=== PATIENT | female | born 1960 | race Asian ===

== ENCOUNTER 2020-04-23 11:26 | Emergency (ER) | payer MEDICAID ==
[~2020-04-23] VITALS: Ht 152.4 cm; Wt 55.0 kg
[~2020-04-23 11:26] MED LIST: ATOR10TA60 PO; BISA-42 PO; GLIM1TAB7 PO; INSU100V13 SQ; LISI2.5T PO; METF500T16 PO; NITR100C6 PO; URSO300C13 PO
[2020-04-23] MEDS ORDERED: IV NORMAL SALINE 1000ML BAG 1,000 ML IV ONE (12:30)
[2020-04-23] MEDS ORDERED: ONDANSETRON PF 4 MG/2 ML VIAL. IV ONE (12:30)
[2020-04-23] MEDS ORDERED: fentaNYL PF VIAL 100 MCG/2 ML VIAL IV ONE (12:30)
[2020-04-23 12:45] LABS: BASO # 0.2 x10^3/uL (0.0-0.2); BASO % 2 % (0-3); EOS # 0.1 x10^3/uL (0.0-0.7); EOS % 1 % (0-3); HEMATOCRIT 29.5 % (36.0-47.0); LYMPH # 2.8 x10^3/uL (1.0-4.8); LYMPH % 33 % (24-48); MEAN CORPUSCULAR HEMOGLOBIN 29 pg (25-35); MEAN CORPUSCULAR HGB CONC 34 g/dL (31-37); MEAN CORPUSCULAR VOLUME 85 fL (79-100); MONO # 0.3 x10^3/uL (0.0-1.1); MONO % 4 % (0-9); NEUT # 5.3 x10^3/uL (1.8-7.7); NEUT % 61 % (31-73); PLATELET COUNT 661 x10^3/uL (140-400); RED BLOOD COUNT 3.46 x10^6/uL (3.50-5.40); WHITE BLOOD COUNT 8.7 x10^3/uL (4.0-11.0)
--- NOTE | 2020-04-23 12:45 | EKG ---
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
[2020-04-23 12:50] LABS: CALCIUM 9.2 mg/dL (8.5-10.1); CREATININE 1.7 mg/dL (0.6-1.0); GFR 30.9; POTASSIUM 4.6 mmol/L (3.5-5.1)
[2020-04-23 12:56] LABS: ALBUMIN 3.2 g/dL (3.4-5.0); ALBUMIN/GLOBULIN RATIO 0.7 (1.0-1.7); MAGNESIUM 2.1 mg/dL (1.8-2.4); TOTAL BILIRUBIN 0.2 mg/dL (0.2-1.0); TOTAL PROTEIN 7.8 g/dL (6.4-8.2)
--- NOTE | 2020-04-23 13:56 | RAD ---
CT Abdomen and Pelvis without contrast History: Abdominal pain Technique: Noncontrast CT imaging was performed of the abdomen and pelvis. Multiplanar images are reviewed. Exposure: One or more of the following individualized dose reduction techniques were utilized for this examination: 1. Automated exposure control 2. Adjustment of the mA and/or kV according to patient size 3. Use of iterative reconstruction technique. Comparison: April 06, 2020 Findings: There is motion degradation. There is again degree of mosaic attenuation of the lung parenchyma near lung bases although decreased, no pleural fluid. Accurate evaluation of the abdominal visceral organs is limited without intravenous contrast. No new obvious focal abnormality is identified of the liver, spleen, or pancreas. Gallbladder is present without obvious intraluminal abnormality by CT. There is again mild right pelvocaliectasis and mild left pelviectasis. There is again some nonspecific strandy change of the perinephric fat bilaterally. No renal or ureteral calculus is identified. There is scattered mild plaque of the abdominal aorta. Bowel is not significantly dilated. There is no free fluid or free air. Urinary bladder is distended. Normal caliber appendix is visualized without adjacent inflammatory change. There is some variable mild multilevel vacuum disc disease of the thoracolumbar spine. Impression: 1. Findings are fairly similar comparing with the April 06, 2020 exam. There is again mild right renal pelvocaliectasis and mild left renal pelviectasis. There is again nonspecific strandy change of perinephric fat, can be associated with pyelonephritis in the appropriate clinical setting although can be seen in asymptomatic individuals. There is increased distention of the urinary bladder. There is no urolithiasis. 2. There is no CT evidence of acute appendicitis, no significant inflammatory type change about the bowel. 3. There is some residual although decreased nonspecific mosaic attenuation of the visualized lung parenchyma at the lung bases. Electronically signed by: Westley Guajardo MD (04/23/2020 1:53 PM) [id number]
[2020-04-23 14:21] LABS: BILIRUBIN,URINE NEGATIVE (NEG); CLARITY,URINE CLEAR; COLOR,URINE YELLOW; NITRITE,URINE NEGATIVE (NEG); PH,URINE 6.5 (<5.0-8.0); PROTEIN,URINE NEGATIVE (NEG-TRACE); UROBILINOGEN,URINE 0.2 mg/dL (0.2 mg/dL)
--- NOTE | 2020-04-23 14:24 | PHYS DOC ---
Past Medical History Past Medical History: Diabetes-Type II, GERD, High Cholesterol, Hypertension Past Surgical History: No Surgical History Smoking Status: Current Every Day Smoker Alcohol Use: Occasionally General Adult EDM: Chief Complaint: ABDOMINAL PAIN HPI: HPI: Patient is a 59-year-old female who speaks [place] presents with several day history of abdominal pain that radiates up into her chest. She has had some nausea but no vomiting. She denies any melena and hematemesis. She denies any shortness of breath or dyspnea on exertion. She has not had any fever chills or sweats. She denies any cough or congestion. 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 [] Review of Systems: Review of Systems: Constitutional: Denies fever or chills. [] Eyes: Denies change in visual acuity. [] HENT: Denies nasal congestion or sore throat. [] Respiratory: Denies cough or shortness of breath. [] Cardiovascular: Denies chest pain or edema. [] GI: Reports abdominal pain. [] : Denies dysuria. [] Musculoskeletal: Denies back pain or joint pain. [] Integument: Denies rash. [] Neurologic: Denies headache, focal weakness or sensory changes. [] Endocrine: Denies polyuria or polydipsia. [] Lymphatic: Denies swollen glands. [] Psychiatric: Denies depression or anxiety. [] Heart Score: Risk Factors: Risk Factors: DM, Current or recent (<one month) smoker, HTN, HLP, family history of CAD, obesity. Risk Scores: Score 0 - 3: 2.5% MACE over next 6 weeks - Discharge Home Score 4 - 6: 20.3% MACE over next 6 weeks - Admit for Clinical Observation Score 7 - 10: 72.7% MACE over next 6 weeks - Early Invasive Strategies Current Medications: Current Medications Medications (Trade) Dose Ordered Sig/Sarah Start Time Stop Time Status Last Admin Dose Admin Fentanyl Citrate (Fentanyl 2ml Vial) 50 mcg 1X ONCE 04/23/20 12:30 04/23/20 12:31 DC 04/23/20 12:38 50 MCG Ondansetron HCl (Zofran) 4 mg 1X ONCE 04/23/20 12:30 04/23/20 12:31 DC 04/23/20 12:37 4 MG Sodium Chloride 1,000 ml @ 1,000 mls/hr 1X ONCE 04/23/20 12:30 04/23/20 13:29 DC 04/23/20 12:37 1,000 MLS/HR Allergies: Allergies: Allergies Coded Allergies Type Severity Reaction Last Updated Verified No Known Drug Allergies 04/06/20 No Physical Exam: PE: Constitutional: Well developed, well nourished, mild distress, non-toxic appearance. [] HENT: Normocephalic, atraumatic, bilateral external ears normal, oropharynx moist, no oral exudates, nose normal. [] Eyes: PERRLA, EOMI, conjunctiva normal, no discharge. [] Neck: Normal range of motion, no tenderness, supple, no stridor. [] Cardiovascular:Heart rate regular rhythm, no murmur [] Lungs & Thorax: Bilateral breath sounds clear to auscultation [] Abdomen: Diffusely tender to palp no rebound or guarding [] Skin: Warm, dry, no erythema, no rash. [] Back: No tenderness, no CVA tenderness. [] Extremities: No tenderness, no cyanosis, no clubbing, ROM intact, no edema. [] Neurologic: Alert and oriented X 3, normal motor function, normal sensory f unction, no focal deficits noted. [] Psychologic: Anxious l. [] Current Patient Data: Labs: Laboratory Tests Test 04/23/20 12:27 White Blood Count 8.7 x10^3/uL (4.0-11.0) Red Blood Count 3.46 x10^6/uL (3.50-5.40) L Hemoglobin 10.0 g/dL (12.0-15.5) L Hematocrit 29.5 % (36.0-47.0) L Mean Corpuscular Volume 85 fL (79-100) Mean Corpuscular Hemoglobin 29 pg (25-35) Mean Corpuscular Hemoglobin Concent 34 g/dL (31-37) Red Cell Distribution Width 14.0 % (11.5-14.5) Platelet Count 661 x10^3/uL (140-400) H Neutrophils (%) (Auto) 61 % (31-73) Lymphocytes (%) (Auto) 33 % (24-48) Monocytes (%) (Auto) 4 % (0-9) Eosinophils (%) (Auto) 1 % (0-3) Basophils (%) (Auto) 2 % (0-3) Neutrophils # (Auto) 5.3 x10^3/uL (1.8-7.7) Lymphocytes # (Auto) 2.8 x10^3/uL (1.0-4.8) Monocytes # (Auto) 0.3 x10^3/uL (0.0-1.1) Eosinophils # (Auto) 0.1 x10^3/uL (0.0-0.7) Basophils # (Auto) 0.2 x10^3/uL (0.0-0.2) Sodium Level 137 mmol/L (136-145) Potassium Level 4.6 mmol/L (3.5-5.1) Chloride Level 101 mmol/L (98-107) Carbon Dioxide Level 26 mmol/L (21-32) Anion Gap 10 (6-14) Blood Urea Nitrogen 16 mg/dL (7-20) Creatinine 1.7 mg/dL (0.6-1.0) H Estimated GFR (Cockcroft-Gault) 30.9 BUN/Creatinine Ratio 9 (6-20) Glucose Level 60 mg/dL (70-99) L Calcium Level 9.2 mg/dL (8.5-10.1) Magnesium Level 2.1 mg/dL (1.8-2.4) Total Bilirubin 0.2 mg/dL (0.2-1.0) Aspartate Amino Transferase (AST) 37 U/L (15-37) Alanine Aminotransferase (ALT) 41 U/L (14-59) Alkaline Phosphatase 375 U/L (46-116) H Troponin I Quantitative < 0.017 ng/mL (0.000-0.055) Total Protein 7.8 g/dL (6.4-8.2) Albumin 3.2 g/dL (3.4-5.0) L Albumin/Globulin Ratio 0.7 (1.0-1.7) L Lipase 120 U/L (73-393) Laboratory Tests 04/23/20 12:27 Laboratory Tests 04/23/20 12:27 Vital Signs: Vital Signs Date Time Temp Pulse Resp B/P (MAP) Pulse Ox O2 Delivery O2 Flow Rate FiO2 04/23/20 12:56 98.8 75 20 149/68 (95) 100 Room Air 98.8 EKG: EKG: EKG: Normal sinus rhythm rate of [address]-T changes [] Radiology/Procedures: Radiology/Procedures: []CT Abdomen and Pelvis without contrast History: Abdominal pain Technique: Noncontrast CT imaging was performed of the abdomen and pelvis. Multiplanar images are reviewed. Exposure: One or more of the following individualized dose reduction techniques were utilized for this examination: 1. Automated exposure control 2. Adjustment of the mA and/or kV according to patient size 3. Use of iterative reconstruction technique. Comparison: April 06, 2020 Findings: There is motion degradation. There is again degree of mosaic attenuation of the lung parenchyma near lung bases although decreased, no pleural fluid. Accurate evaluation of the abdominal visceral organs is limited without intravenous contrast. No new obvious focal abnormality is identified of the liver, spleen, or pancreas. Gallbladder is present without obvious intraluminal abnormality by CT. There is again mild right pelvocaliectasis and mild left pelviectasis. There is again some nonspecific strandy change of the perinephric fat bilaterally. No renal or ureteral calculus is identified. There is scattered mild plaque of the abdominal aorta. Bowel is not significantly dilated. There is no free fluid or free air. Urinary bladder is distended. Normal caliber appendix is visualized without adjacent inflammatory change. There is some variable mild multilevel vacuum disc disease of the thoracolumbar spine. Impression: 1. Findings are fairly similar comparing with the April 06, 2020 exam. There is again mild right renal pelvocaliectasis and mild left renal pelviectasis. There is again nonspecific strandy change of perinephric fat, can be associated with pyelonephritis in the appropriate clinical setting although can be seen in asymptomatic individuals. There is increased distention of the urinary bladder. There is no urolithiasis. 2. There is no CT evidence of acute appendicitis, no significant inflammatory type change about the bowel. 3. There is some residual although decreased nonspecific mosaic attenuation of the visualized lung parenchyma at the lung bases. Impression: REASON: RUQ pain TECH NOTIFIED PROCEDURE: ABDOMEN LTD ABDOMEN LTD History: Right upper quadrant pain Comparison: None. Findings: Multiple sonographic images of the abdomen are submitted. There is subtle echogenicity in the gallbladder. There is no gallbladder wall thickening or pericholecystic fluid. Hepatic echotexture is within normal limits. Right lobe of the liver measured 14 cm longitudinal. Common bile duct is within normal limits in caliber. There is no abnormality of the visualized pancreas. Right kidney measured 10.4 x 4.2 x 4.2 cm, no hydronephrosis. There is segmental visualization of the inferior vena cava. Impression: 1. There is likely mild gallbladder sludge, no other significant abnormality demonstrated. Course & Med Decision Making: Course & Med Decision Making Pertinent Labs and Imaging studies reviewed. (See chart for details) [ED course: Evaluation reveals a 59-year-old female with abdominal pain. She had a CT scan and an abdominal ultrasound to normal. Gallbladder ultrasound was done because her alkaline phosphatase was slightly elevated. She was given IV fluids and pain medicine which did help alleviate her symptoms.] [employer] Disclaimer: [employer] Disclaimer: This electronic medical record was generated, in whole or in part, using a voice recognition dictation system. Departure Departure Impression: Primary Impression: Abdominal pain Qualified Codes: R10.84 - Generalized abdominal pain Additional Impression: UTI (urinary tract infection) Qualified Codes: N39.0 - Urinary tract infection, site not specified Disposition: 01 HOME, SELF-CARE Condition: IMPROVED Referrals: UNKNOWN PCP NAME (PCP) Patient Instructions: Abdominal Pain (Nonspecific) Additional Instructions: Return to the emergency department with any new or concerning symptoms Scripts Levofloxacin (LEVAQUIN) 500 Mg Tablet 1 TAB PO DAILY for urinary tract infection, #7 TAB Prov: TRUDI BORREGO DO 04/23/20 Dicyclomine Hcl (DICYCLOMINE HCL) 10 Mg Capsule 1 CAP PO TID, #90 CAP 11 Refills Prov: TRUDI BORREGO DO 04/23/20 Justicifation of Admission Dx: Justifications for Admission: Justification of Admission Dx: No Acute Renal Failure: RF Can't Be Managed Outpt TRUDI BORREGO DO Apr 23, 2020 14:24
[2020-04-23 14:28] LABS: SQUAMOUS EPITHELIAL CELL,UR FEW /LPF
[2020-04-23 14:29] LABS: BACTERIA,URINE 0 /HPF (0-FEW); RBC,URINE 0 /HPF (0-2); WBC,URINE >40 /HPF (0-4)
[2020-04-23] MEDS ORDERED: cefTRIAXone IV Push 1 GM VIAL. IVP ONE (15:00)
[2020-04-23 16:00] VITALS: BP 160/69
--- NOTE | 2020-04-23 16:00 | RAD ---
ABDOMEN LTD History: Right upper quadrant pain Comparison: None. Findings: Multiple sonographic images of the abdomen are submitted. There is subtle echogenicity in the gallbladder. There is no gallbladder wall thickening or pericholecystic fluid. Hepatic echotexture is within normal limits. Right lobe of the liver measured 14 cm longitudinal. Common bile duct is within normal limits in caliber. There is no abnormality of the visualized pancreas. Right kidney measured 10.4 x 4.2 x 4.2 cm, no hydronephrosis. There is segmental visualization of the inferior vena cava. Impression: 1. There is likely mild gallbladder sludge, no other significant abnormality demonstrated. Electronically signed by: Westley Guajardo MD (04/23/2020 3:57 PM) [id number]
[2020-04-23] MEDS ORDERED: DICY10CA3 PO (16:15)
[2020-04-23] MEDS ORDERED: LEVO500T59 PO (16:29)
== END 2020-04-23 16:42 | disposition home or self-care (01) ==
LOC: ER 11:26
DX: N39.0 Urinary tract infection, site not specified (principal); E11.9 Type 2 diabetes mellitus without complications; I10 Essential (primary) hypertension; E78.00 Pure hypercholesterolemia, unspecified; K21.9 Gastro-esophageal reflux disease without esophagitis; F17.200 Nicotine dependence, unspecified, uncomplicated
CPT/HCPCS: 36415; 74176; 76705; 80053; 81001; 83690; 83735; 84484; 85025; 87086; 93005; 96374; 96375; 99285; J0696; J2405; J3010; J7030